=== PATIENT | male | born 1940 | race African-American/Black ===

== ENCOUNTER 2019-07-11 19:46 | Emergency (ER) | payer OTHER ==
[~2019-07-11] VITALS: Ht 185.4 cm; Wt 99.8 kg
[2019-07-11 19:50] VITALS: BP_SYST 110
--- NOTE | 2019-07-11 19:57 | NUR ---
Patient to ER bed 08 for evaluation. Side rails up.
--- NOTE | 2019-07-11 19:59 | NUR ---
Patient is AAO x 4 and ambulatory c/o chronic right lower back pain. Per patient, pain to lower back that radiates to abdomen and R groin region "when it gets really bad." Patient denies trauma. Pt had taken cyclobenzaprine and Ibuprofen 800mg earlier with no relief. No other injuries/complaints per patient or noted.
--- NOTE | 2019-07-11 20:11 | NUR ---
ER Dr. Paul at bedside examining patient.
[2019-07-11] MEDS ORDERED: MORPHINE 2 MG/ML INJ. SYRINGE IVP ONE (20:30)
[2019-07-11] MEDS ORDERED: ONDANSETRON HCL 4 MG/2 ML VIAL IVP ONE (20:30)
--- NOTE | 2019-07-11 20:36 | NUR ---
Medication administered. Pt tolerated well. No adverse reactions noted.
[2019-07-11 20:45] LABS: BASOPHILS % (AUTO) 0.5 % (0.0-2.0); EOSINOPHILS # (AUTO) 0.2 K/uL (0.0-0.4); HEMATOCRIT 37.1 % (36-54); HEMOGLOBIN 13.2 g/dL (14.0-18.0); LYMPHOCYTES # (AUTO) 1.5 K/uL (1.0-5.5); LYMPHOCYTES % (AUTO) 26.3 % (20.5-51.5); MEAN CORPUSCULAR HEMOGLOBIN 34 pg (27-31); MEAN CORPUSCULAR HGB CONC 36 % (32-36); MEAN CORPUSCULAR VOLUME 96 fL (79.0-98.0); MONOCYTES # (AUTO) 0.4 K/uL (0.0-1.0); MONOCYTES % (AUTO) 6.9 % (1.7-9.3); NEUTROPHILS # (AUTO) 3.6 K/uL (1.8-7.7); NEUTROPHILS % (AUTO) 62.3 % (40.0-70.0); PLATELET COUNT (AUTO) 191 K/uL (130-430); RED BLOOD CELL COUNT(AUTO) 3.86 MIL/uL (4.2-6.2); RED CELL DISTRIBUTION WIDTH 14.1 % (9.0-15.0); WHITE BLOOD COUNT (AUTO) 5.8 K/uL (4.8-10.8)
[2019-07-11 20:54] LABS: ANION GAP 6 (5-15); CALCIUM 8.3 mg/dL (8.4-11.0); CHLORIDE 107 mmol/L (98-107); CREATININE 1.99 mg/dL (0.55-1.30); GLUCOSE 115 mg/dL (70-99); POTASSIUM 3.6 mmol/L (3.5-5.1); SODIUM SERUM 145 mmol/L (136-145); UREA NITROGEN, BLOOD 34 mg/dL (8-21)
[2019-07-11 20:55] LABS: BILIRUBIN,URINE NEGATIVE (NEGATIVE); BLOOD, URINE NEGATIVE (NEGATIVE); COLOR,URINE YELLOW (YELLOW); GLUCOSE,URINE NEGATIVE (NEGATIVE); KETONES,URINE NEGATIVE (NEGATIVE); LEUKOCYTE ESTERASE ,URINE NEGATIVE (NEGATIVE); NITRITE, URINE NEGATIVE (NEGATIVE); PH,URINE 5.5 (5.0-8.0); PROTEIN URINE NEGATIVE (NEGATIVE); UROBILINOGEN,URINE 0.2 (0.2-1.0)
[2019-07-11 21:00] LABS: ALANINE AMINOTRANSFERASE 23 U/L (12-78); ALBUMIN 3.9 g/dL (3.4-4.8); ASPARTATE AMINOTRANSFERASE 14 U/L (10-37); CLARITY/URINE SLIGHTLY HAZY (CLEAR); LIPASE 373 U/L (73-393); TOTAL BILIRUBIN 0.2 mg/dL (0.0-1.0)
--- NOTE | 2019-07-11 21:15 | NUR ---
Creatinine 1.99. Dr. Paul notified. CTA with contrast canceled. CT with no contrast ordered.
--- NOTE | 2019-07-11 21:24 | NUR ---
Pt laying comfortably in bed with no signs of distress.
[2019-07-11 21:38] LABS: PROTHROMBIN TIME 9.6 SECS (9.5-12.5)
--- NOTE | 2019-07-11 22:01 | NUR ---
Pt taken to radiology via wheelchair in stable condition
--- NOTE | 2019-07-11 22:09 | NUR ---
Patient returned from radiology in stable condition.
--- NOTE | 2019-07-11 22:57 | NUR ---
Patient given written and verbal discharge instructions and verbalizes understanding. ER MD Aragonisdiscussed with patient the results and treatment provided. Patient in stable condition. ID arm band removed. IV catheter removed intact and dressing applied, no active bleeding. Rx of Steph Pope given. Patient educated on pain management and to follow up with PMD. Pain Scale 0. Opportunity for questions provided and answered. Medication side effect fact sheet provided.
[2019-07-11 22:59] VITALS: BP_SYST 118
== END 2019-07-11 22:59 | disposition home or self-care (01) ==
LOC: SED 19:46
DX: N28.9 Disorder of kidney and ureter, unspecified (principal); R10.9 Unspecified abdominal pain; I10 Essential (primary) hypertension
CPT/HCPCS: 36415; 74176; 80053; 81003; 83690; 84484; 85025; 85610; 85730; 93005; 96374; 96375; 99284; J2270; J2405